=== PATIENT | female | born 1940 | race Caucasian/White ===

== ENCOUNTER 2017-06-05 12:07 | Inpatient (IN) | payer OTHER ==
[~2017-06-05] VITALS: Ht 152.4 cm; Wt 59.0 kg
--- NOTE | ~2017-06-05 | DS ---
Unit #: [id number] #: [id number] Patient: OMAIRA CRUZ [id number] [address] [address] [id number] I MR#: [id number] NAME: OMAIRA CRUZ. ROOM: [facility] Age: 76 Sex: F Admission Date: 06/05/2017 : 1940 Discharge Date: 06/09/2017 Attending Physician: Fariha De La Cruz M.D. Primary Care Physician: Augusto Mix M.D. DISCHARGE SUMMARY ADMISSION DIAGNOSES 1. Acute on chronic systolic heart failure. 2. Acute on COPD exacerbation. 3. Probable permanent atrial fib and controlled ventricular rate. 4. Permanent pacemaker. 5. History of rheumatic fever as a child. 6. Rheumatic heart disease, status post mechanical mitral valve replacement in 1994, on termite treater helper anticoagulation with Coumadin. 7. Hypertension. 8. Hypothyroidism. 9. Nicotine abuse. DISCHARGE DIAGNOSES 1. Acute on chronic systolic heart failure, stable. 2. Acute hypoxic respiratory failure, resolved. 3. History of mechanical aortic valve replacement, on Lovenox bridge to therapeutic INR with Coumadin. 4. Right pleural effusion secondary to congestive heart failure, resolving. 5. Atrial fib/flutter. 6. History of permanent pacemaker placement, with history of ablation, stable. 7. Hypertension. 8. Hypothyroidism. 9. Nicotine abuse. CONSULTANTS Gloria Lew M.D. - Cardiology. DIAGNOSTIC STUDIES LABORATORY: WBC 6.0, hemoglobin 10.6, hematocrit 31.7, platelet count 207,000. PT 1.5. Sodium 145, potassium 4.6, chloride 105, CO2 29, glucose 100, BUN 20, creatinine 1.1, calcium 9.5. IMAGING: Portable chest x-ray date of admission - diffuse bilateral interstitial change most consistent with edema. A small to moderate right pleural effusion. Median sternotomy change with cardiomegaly. Tortuous aorta and dual lead pacer. CONDITION Stable. DISPOSITION Home. Unit #: [id number] #: [id number] Patient: OMAIRA CRUZ DISCHARGE INSTRUCTIONS Patient is to follow up with primary care physician in 5 to 7 days. she is to call and schedule a followup appointment with Dr. Nick Godinez, her investment fund manager, as advised by Dr. Lew. DISCHARGE MEDICATIONS 1. Lovenox 60 mg subcu every 12 hours, to be discontinued when INR is greater than 2.0. 2. Coumadin 5 mg p.o. x1 dose on 06/10/17, then Coumadin dose will depend on INR on 06/11. Home health is to call INR to Dr. Lew for Coumadin order on 06/11/17. 3. Tenormin 25 mg p.o. daily. 4. Milk of magnesia 30 mL p.o. q.6 hours p.r.n. constipation. 5. Furosemide 40 mg p.o. b.i.d. 6. Zestril 10 mg p.o. at bedtime. 7. Multivitamin, one tab p.o. daily. 8. Hydrocodone/Acet 5/325 mg tab, one p.o. q.4 hours p.r.n. pain, from home medications supplied. 9. Klor-Con 10 mEq p.o. b.i.d. 10. Levothyroxine 0.075 mg p.o. at 6 a.m., before breakfast. HOSPITAL COURSE The patient is a 76-year-old female with a history of chronic systolic CHF and LVEF of 30%, status post mitral valve replacement with mechanical aortic valve, who presented to [facility] on the date of admission with complaints of shortness of breath as well as bilateral shoulder pain. Chest x-ray showed interstitial markings concerning for pleural effusion and moderate CHF. She was treated in the emergency department with IV Lasix. She was admitted to telemetry for further evaluation and management of her condition. Please refer to History and Physical report for complete details. Dr. Lew was consulted for further evaluation and management of acute on chronic systolic congestive heart failure. Patient was diuresed and required IV dobutamine and antihypertensive medications were adjusted. The patient is stable from a cardiac standpoint and has been cleared for discharge by cardiology today. The patient feels well and wishes to be discharged home. She will be followed by home health for PT/INR, PT/OT for functional training per order of cardiology. Prescriptions have been placed on the chart for atenolol, Coumadin, Lovenox to bridge to Coumadin until INR greater than 2.0, and lisinopril. The patient is to follow with her primary care physician in five to seven days. Dictated by... Berkley Linn A.P.R.N. for Chary Jones/sallie TD: 06/12/2017 07:21 JOB #: [id number] Unit #: [id number] #: [id number] Patient: OMAIRA CRUZ DISCHARGE SUMMARY Page 1 of 1 X Berkley Linn APRN DISCHARGE SUMMARY
--- NOTE | ~2017-06-05 | CR72 ---
[facility] A Service of [facility] RADIOLOGY TEXT RESULTS PATIENT: OMAIRA CRUZ LOCATION: [facility] 570-01 : 42 UNIT #: [id number] AGE: [address]: Fariha De La Cruz MD SEX: F ORDER DR: [id number] [facility] [address] [facility] [place], [place] [address] [id number] I MR#: [id number] Acc #: [id number] NAME: OMAIRA CRUZ. : 1940 SEX: F STUDY DATE/TIME: 06/05/2017 13:05 UNIT: [facility] ROOM: [facility] STUDY DESCRIPTION: CR Chest Single View Portable Attending Physician: Anastasia Irizarry M.D. Ordering Physician: Joshua Sanderson M.D. Primary Care Physician: Augusto Mix M.D. MEDICAL IMAGING REPORT This report is preliminary unless electronic signature is present EXAM Chest, portable, 06/05/2017, 1305 hours. CLINICAL HISTORY 76-year-old woman with shortness of air, history of COPD. Symptoms for 3 days. COMPARISON None FINDINGS Portable upright chest demonstrates median sternotomy change with [id number] cardiomegaly and dual lead pacer. There is interstitial change diffusely in both lungs with a small to moderate right pleural effusion. IMPRESSION Median sternotomy change with cardiomegaly, tortuous aorta, and dual lead pacer. There is diffuse bilateral interstitial change most consistent with edema. There is a small to moderate right pleural effusion. Findings suggest moderate congestive heart failure. Dictated by... Ayesha Green M.D. THIS IS AN ELECTRONICALLY VERIFIED REPORT Ayesha Green M.D. at 06/06/2017 9:25 AM DIMPLE/helio TD: 06/05/2017 20:01 JOB #: [id number] [facility] A Service of [facility] RADIOLOGY TEXT RESULTS PATIENT: OMAIRA CRUZ LOCATION: [facility] 570-01 : 42 UNIT #: [id number] AGE: [address]: Fariha De La Cruz MD SEX: F ORDER DR: MEDICAL IMAGING REPORT Page 1 of 1 COPY
--- NOTE | ~2017-06-05 | CO ---
Unit #: [id number] #: [id number] Patient: OMAIRA CRUZ [id number] [address] [place], [place] [address] [id number] I MR#: [id number] NAME: OMAIRA CRUZ. ROOM: 570 Age: 76 Sex: F Admission Date: 06/05/2017 : 1940 Attending Physician: Fariha De La Cruz M.D. Primary Care Physician: Augusto Mix M.D. CONSULTATION REPORT REASON FOR CONSULTATION Heart failure. HISTORY OF PRESENT ILLNESS This is a 76-year-old white female who is well known to Dr. Nick Godinez who has a history of rheumatic fever at age 11. She had a [facility] mechanical mitral valve replacement in 1994 and has been on long-term anticoagulation with Coumadin. She is known to have chronic systolic heart failure where she says her ejection fraction is approximately 30%. She has atrial fibrillation with a history of ablation and has permanent pacemaker placed. She was hospitalized at [facility] in December of 2016 where she was told she had a myocardial infarction. She refused cardiac catheterization at that time and left AMA. The patient presents to the emergency room with a complaint of shortness of breath for the past 2 weeks. She had an increase in her "water pill" a week ago with no change. She reports lower extremity edema that is slightly improved but dyspnea worsened. She complains of right shoulder pain but no chest pain, palpitations or dizziness. She came to the emergency room for evaluation where she was found to have an elevated BNP of 1,112. Chest x-ray consistent with right pleural effusion and congestive heart failure. Troponin negative with no acute changes on electrocardiogram. INR slightly supratherapeutic at 3.7. The patient states she has side effects from carvedilol and will not take a beta-kwasi. PAST MEDICAL HISTORY 1. [facility] mechanical mitral valve replacement in 1994. 2. Chronic systolic heart failure with ejection fraction of approximately 30% per patient. 3. Atrial fibrillation with history of ablation. 4. Permanent pacemaker. 5. Questionable myocardial infarction 12/2006. No details available. Patient refused cardiac catheterization. 6. Hypertension. 7. Rheumatic fever at age 11. 8. Hypothyroidism. 9. Active smoker. PAST SURGICAL HISTORY 1. Cholecystectomy. 2. Hysterectomy. Unit #: [id number] #: [id number] Patient: OMAIRA CRUZ 3. Mitral valve replacement. 4. Left ankle surgery. SOCIAL HISTORY The patient lives at home alone. She utilizes a cane when she has to walk distances. She continues to smoke 4 cigarettes a day, where she previously smoked a pack of cigarettes a day. ALLERGIES No known drug allergies. HOME MEDICATIONS 1. Hydrocodone/acetaminophen 1 q.4 hours p.r.n. 2. Potassium chloride 10 mEq b.i.d. 3. Furosemide 40 mg b.i.d. 4. Warfarin 3 mg daily. 5. Levothyroxine 75 mcg daily. 6. Multivitamin 1 tablet daily. REVIEW OF SYSTEMS CONSTITUTIONAL: Negative for fever or chills. Has no weight gain or weight loss. HEENT: No headache, hearing or visual changes or difficulty with swallowing. Denies dizziness. CARDIOVASCULAR: Has no symptoms of angina. Denies palpitations. Has paroxysmal nocturnal dyspnea and orthopnea. No syncope or near syncope. RESPIRATORY: Positive for dyspnea at rest, worse on exertion. Has occasional nonproductive cough. No hemoptysis. GASTROINTESTINAL: No abdominal pain, nausea or vomiting. No constipation or melena. EXTREMITIES: Positive for lower extremity edema. PHYSICAL EXAMINATION VITAL SIGNS: Blood pressure 161/61, heart rate 61, temperature 97.8. BMI 24. GENERAL: This is a thin, frail-appearing 76-year-old elderly white female who appears older than her stated age. She is in no acute respiratory distress. NEUROLOGIC: She is awake, alert and oriented. There are no focal weaknesses. NECK: Trachea is midline. No thyromegaly or lymphadenopathy. No jugular venous distention. HEART: S1, S2. Heart sounds are normal. No murmurs, no rubs, no clicks. Irregularly irregular rhythm. LUNGS: With diminished breath sounds with fine crackles in both lung bases. ABDOMEN: Soft, nontender with bowel sounds present. EXTREMITIES: With 1+ leg edema. SKIN: Pale and dry. DIAGNOSTIC STUDIES LABORATORY STUDIES: Glucose 113, BUN 20, creatinine 1.2, sodium 142, potassium 3.9. BNP 1,112. INR 3.7, PT 39.8. Troponin less than 0.05. White count 6.8, hemoglobin 12.7, hematocrit 38, platelet count 183. DIAGNOSTIC IMAGING: Chest x-ray noted for right pleural effusion, small to moderate in size. There are findings consistent with congestive heart failure. Unit #: [id number] #: [id number] Patient: OMAIRA CRUZ CARDIOVASCULAR STUDIES: Electrocardiogram shows ventricularly paced rhythm with underlying A fib/flutter with a rate of 62 beats per minute. IMPRESSION 1. Acute on chronic systolic heart failure. 2. Acute on chronic obstructive pulmonary disease exacerbation. 3. Probable permanent atrial fibrillation in a controlled ventricular rate. 4. Permanent pacemaker. 5. History of rheumatic fever as a child. 6. Rheumatic heart disease status post mechanical mitral valve replacement in 1994, on long-term anticoagulation with Coumadin. 7. Hypertension. 8. Hypothyroidism. 9. Nicotine abuse. PLAN 1. Cardiology was consulted to see the patient for congestive heart failure. Will diurese the patient with IV diuretics. 2. Start the patient on fluid restriction. CHF education was given. 3. Will hold Coumadin if INR is greater than 3.5. 4. Will obtain records from [facility]. 5. Encourage the patient to quit smoking. 6. The patient may require dobutamine drip. Will reassess in the a.m. 7. Follow up with Dr. Godinez at discharge. 8. Will repeat troponin to rule out myocardial infarction. Thank you for allowing us to assist with this patient's care. Dictated by... Anali Cornejo M.D. AEP/cameron TD: 06/06/2017 10:44 JOB #: [id number] CC: Nick Godinez M.D. CONSULTATION REPORT Page 1 of 1 X Anselmo Rodriguez APRN X CONSULTATION REPORT
--- NOTE | ~2017-06-05 | HP ---
Unit #: [id number] #: [id number] Patient: OMAIRA CRUZ [id number] [address] [place], [place] [address] [id number] I MR#: [id number] NAME: OMAIRA CRUZ. ROOM: [facility] Age: 76 Sex: F Admission Date: 06/05/2017 : 1940 Attending Physician: Bibiana Irizarry M.D. Primary Care Physician: Augusto Mix M.D. HISTORY AND PHYSICAL CHIEF COMPLAINT Shortness of breath. HISTORY OF PRESENT ILLNESS The patient is a 76-year-old female with a history of a chronic systolic heart failure with the EF of 30% and status post mitral valve replacement back in 1994 secondary to the rheumatic fever and history of afib with history of ablation, brought to the emergency room complaining of the shortness of breath. The patient stated the patient has been having shortness of breath for the last week. The patient was seen by the primary care physician and increased the dosing for the Lasix. However, the swelling subsided but the patient started complaining of the shoulder pain bilaterally, started yesterday and that made her come to the emergency room. The patient denies any palpitation; positive for shortness of breath, denies any fever or cough. PAST MEDICAL HISTORY History of: 1. Hypothyroidism. 1. Afib, with ablation, prior permanent pacemaker. 2. Hypertension. 3. Chronic systolic heart failure. 4. Rheumatic fever. PAST SURGICAL HISTORY 1. History of a CABG. 2. Hysterectomy. 3. Gallbladder. 4. Left ankle. 5. Mitral valve replacement. HOME MEDICATION Patient is on hydrocodone, potassium, Lasix, warfarin, levothyroxine and multivitamin. SOCIAL HISTORY Denies history of smoking cigarettes, drinking alcohol or any illicit drug abuse. FAMILY HISTORY Reviewed and none. REVIEW OF SYMPTOMS Unit #: [id number] #: [id number] Patient: OMAIRA CRUZ Positive for the shoulder pain and denies any chest pain, denies any nausea and vomiting and other systems have been reviewed and are negative. PHYSICAL EXAMINATION GENERAL APPEARANCE: On examination patient is lying on a bed not in acute distress. VITAL SIGNS: Temperature 97.8, pulse 62, respiratory rate 18, blood pressure 150/52, sating 98% at room air. HEENT: Head atraumatic and normocephalic. Pupils equal, round and reacting to light and accommodation. Positive for elevated JVP. LUNGS: Decreased air entry at the bases. Positive for rales. HEART: Irregular rate and rhythm. Positive for the murmur. ABDOMEN: Soft, positive bowel sounds. EXTREMITIES: Positive for trace edema. NEUROLOGIC: Alert, awake, oriented. No gross focal motor deficit. DIAGNOSTIC STUDIES LABORATORY DATA: White blood count is 6.8, hemoglobin 12.7, hematocrit 38, platelets 183, INR is 3.7, troponin less than 0.05, sodium 142, potassium 3.9, chloride 103, bicarb of 26, glucose 113, BUN 20, creatinine 1.2, AST 26, ALT 19, alkaline phosphatase 76, total bilirubin 1.8, albumin 4.5, BNP is 1112, troponin is less than 0.05. IMAGING: The chest x-ray shows interstitial markings concerning for the pleural effusion and concerning for the moderate congestive heart failure. CARDIOVASCULAR: EKG shows paced rhythm. ASSESSMENT 1. Lxkiy-jt-fbkhifk systolic heart failure. 2. Status post mitral valve replacement, with elevated Coumadin. 3. Hypertension. PLAN 1. Plan to admit the patient to the inpatient on the telemetry. 2. Continue with the diuresis using Lasix 40 mg IV b.i.d. 3. Appreciate cardiology consult for the diuresis. 4. Recommend may need dobutamine drip if needed. 5. Hold the Coumadin for tonight and follow with the repeat INR level. 6. Further recommendations will follow. Dictated by Chary Chaparro TD: 06/05/2017 17:22 JOB #: [id number] Unit #: [id number] #: [id number] Patient: OMAIRA CRUZ HISTORY AND PHYSICAL Page 1 of 1 X BIBIANA IRIZARRY MD HISTORY AND PHYSICAL
--- NOTE | ~2017-06-05 | EKG ---
PATIENT: OMAIRA CRUZ UNIT #: [id number] Ventricular Rate: 62 BPM Atrial Rate: 312 BPM QRS Duration: 154 ms Q-T Interval: 490 ms QTC Calculation(Bezet): 497 ms Calculated R Bomont: 124 degrees Calculated T Bomont: -46 degrees Diagnosis Line: Ventricular-paced rhythm Diagnosis Line: Abnormal ECG Diagnosis Line: No previous ECGs available Diagnosis Line: Confirmed by LUIS GUEVARA MD ([id number]) on 06/06/2017 Diagnosis Line: 11:42:14 PM INTERPRETING MD: PAOLA JALLOH
[~2017-06-05 12:07] MED LIST: HYDROCODON-ACE1 EAC7 PO
[2017-06-05 13:00] LABS: BASOPHIL# 0.1 X10e3 (0-0.3); BASOPHIL% 0.9 % (0-2.5); EOSINOPHIL# 0.1 X10e3 (0-0.7); EOSINOPHIL% 0.8 % (0.0-7.0); HEMOGLOBIN 12.7 gm/dL (12.0-16.0); LYMPHOCYTE# 0.6 X10e3 (1.0-3.5); LYMPHOCYTE% 9.4 % (17.0-45.0); MEAN CELL VOLUME 103.6 FL (83-96); MEAN CORPUSCULAR HEMOGLOBIN 34.8 PG (28-34); MEAN CORPUSCULAR HGB CONC 33.6 g/dL (30-36); MEAN PLATELET VOLUME 7.2 FL (6.5-11.5); MONOCYTE# 0.4 X10e3 (0-1.0); MONOCYTE% 5.2 % (3.0-12.0); NEUTROPHIL# 5.7 X10e3 (1.5-7.1); NEUTROPHIL% 83.7 % (40-75); PLATELET COUNT 183 X10e3 (140-420); RED BLOOD COUNT 3.66 X10e (3.90-5.30); RED CELL DISTRIBUTION WIDTH 15.2 % (11.0-15.5); WHITE BLOOD COUNT 6.8 X10e3 (4.0-10.5)
[2017-06-05 13:01] LABS: DIFF IND NO
[2017-06-05 13:12] LABS: INR 3.7; PROTHROMBIN TIME (PATIENT) 39.8 SECONDS (10.0-11.7)
[2017-06-05 13:24] LABS: POC - CKMB 2.5 ng/mL (0.0-7.9); POC - TROPONIN <0.05 ng/mL (<=0.05)
[2017-06-05 13:28] LABS: ALBUMIN SERUM 4.5 g/dL (3.5-5.0); BILIRUBIN, DIRECT 0.3 mg/dL (0.0-0.2); BILIRUBIN,INDIRECT 1.5 mg/dL (0.0-0.9); BILIRUBIN,TOTAL 1.8 mg/dL (0.2-2.0); BUN/CREATININE RATIO 16.66; CALCIUM SERUM 10.1 mg/dL (8.4-10.2); CREATININE SERUM 1.2 mg/dL (0.6-1.4); GLOM FILT RATE Estimated 44.5 mL/min (>60); POTASSIUM 3.9 mmol/L (3.5-5.1); PROTEIN TOTAL SERUM 7.8 g/dL (6.0-8.3)
[2017-06-05] MEDS ORDERED: HYDROCODON-ACE1 EAC7 PO (14:42)
[2017-06-05] MEDS ORDERED: LASIX PO (14:42)
[2017-06-05] MEDS ORDERED: POTASSIUM CHLO10 MEQ PO (14:42)
[2017-06-05] MEDS ORDERED: MULTI VITAMIN1 EACH PO (14:43)
[2017-06-05] MEDS ORDERED: LEVOTHYROXINE75 MCG PO (14:43)
[2017-06-05] MEDS ORDERED: WARFARIN SODIUM3 M1 PO (14:43)
[2017-06-05 14:53] LABS: POC - CKMB 2.2 ng/mL (0.0-7.9); POC - TROPONIN <0.05 ng/mL (<=0.05)
[2017-06-06 05:44] LABS: HEMATOCRIT 34.6 % (35.0-45.0); HEMOGLOBIN 11.4 gm/dL (12.0-16.0); MEAN CELL VOLUME 105.3 FL (83-96); MEAN CORPUSCULAR HEMOGLOBIN 34.8 PG (28-34); MEAN PLATELET VOLUME 7.3 FL (6.5-11.5); RED BLOOD COUNT 3.29 X10e (3.90-5.30); RED CELL DISTRIBUTION WIDTH 15.3 % (11.0-15.5); WHITE BLOOD COUNT 7.9 X10e3 (4.0-10.5)
[2017-06-06 05:54] LABS: INR 3.5; PROTHROMBIN TIME (PATIENT) 38.5 SECONDS (10.0-11.7)
[2017-06-06 06:24] LABS: BUN/CREATININE RATIO 19.09; CALCIUM SERUM 9.9 mg/dL (8.4-10.2); CREATININE SERUM 1.1 mg/dL (0.6-1.4); GLOM FILT RATE Estimated 49.4 mL/min (>60); POTASSIUM 5.2 mmol/L (3.5-5.1)
[2017-06-07 06:37] LABS: BUN/CREATININE RATIO 22.72; CALCIUM SERUM 9.3 mg/dL (8.4-10.2); CREATININE SERUM 1.1 mg/dL (0.6-1.4); GLOM FILT RATE Estimated 49.4 mL/min (>60); MAGNESIUM 2.1 mg/dL (1.6-3.0); POTASSIUM 3.7 mmol/L (3.5-5.1)
[2017-06-07 06:46] LABS: INR 2.4; PROTHROMBIN TIME (PATIENT) 25.7 SECONDS (10.0-11.7)
[2017-06-08 05:42] LABS: INR 1.7
[2017-06-08 06:36] LABS: BUN/CREATININE RATIO 17.5; CALCIUM SERUM 9.6 mg/dL (8.4-10.2); CREATININE SERUM 1.2 mg/dL (0.6-1.4); GLOM FILT RATE Estimated 44.5 mL/min (>60)
[2017-06-09 05:07] LABS: HEMATOCRIT 31.7 % (35.0-45.0); HEMOGLOBIN 10.6 gm/dL (12.0-16.0); MEAN CELL VOLUME 103.8 FL (83-96); MEAN CORPUSCULAR HEMOGLOBIN 34.7 PG (28-34); MEAN CORPUSCULAR HGB CONC 33.4 g/dL (30-36); MEAN PLATELET VOLUME 7.5 FL (6.5-11.5); RED BLOOD COUNT 3.05 X10e (3.90-5.30); RED CELL DISTRIBUTION WIDTH 14.9 % (11.0-15.5)
[2017-06-09 05:29] LABS: INR 1.5; PROTHROMBIN TIME (PATIENT) 16.5 SECONDS (10.0-11.7)
[2017-06-09 06:45] LABS: BUN/CREATININE RATIO 18.18; CALCIUM SERUM 9.5 mg/dL (8.4-10.2); CREATININE SERUM 1.1 mg/dL (0.6-1.4); GLOM FILT RATE Estimated 49.4 mL/min (>60); POTASSIUM 4.6 mmol/L (3.5-5.1)
[2017-06-09] MEDS ORDERED: LOVENOX SUBQ (14:38)
[2017-06-09] MEDS ORDERED: ZESTRIL10 M1 PO (14:39)
[2017-06-09] MEDS ORDERED: COUMADIN5 MG PO (14:39)
[2017-06-09] MEDS ORDERED: TENORMIN25 MG PO (15:15)
[2017-06-09] MEDS ORDERED: MILK OF MAGNESIA PO (15:24)
== END 2017-06-09 17:42 | disposition home health service (06) | DRG 291 ==
LOC: CED 12:07 → C5C 14:27 → CED 14:27 → CEDOF 14:27 → CED 14:57 → CEDOF 14:57 → CED 16:15 → CEDOF 16:15 → C5C 16:15 → CEDOF 16:54 → C5C 06-06 07:34
PROVIDERS: Emergency Medicine; Internal Medicine; Internal Medicine Cardiovascular Disease; Nurse Practitioner
DX: I11.0 Hypertensive heart disease with heart failure (principal); J96.01 Acute respiratory failure with hypoxia; J44.1 Chronic obstructive pulmonary disease with (acute) exacerbation; I48.92 Unspecified atrial flutter; I50.23 Acute on chronic systolic (congestive) heart failure; I48.2 Chronic atrial fibrillation; Z95.0 Presence of cardiac pacemaker; Z95.2 Presence of prosthetic heart valve; Z79.01 Long term (current) use of anticoagulants; E03.9 Hypothyroidism, unspecified; F17.200 Nicotine dependence, unspecified, uncomplicated; Z71.6 Tobacco abuse counseling; E87.5 Hyperkalemia
CPT/HCPCS: 36415; 71010; 80048; 80076; 82553; 83735; 83880; 84484; 85025; 85027; 85610; 93005; 94640; 94760; 96374; 97163; 97166; 99285; G8978-GP; G8979-GP; G8980-GP; G8987-GO; G8988-GO; G8989-GO; J1250; J1650; J1940; J2270